=== PATIENT | male | born 1935 | race Caucasian/White ===

== ENCOUNTER 2016-04-30 13:19 | Emergency (ER) | payer MEDICARE, BC ==
[2016-04-30 13:31] VITALS: BP 160/87
[2016-04-30] MEDS ORDERED: Sodium Chloride 0.9% 10 ML Syringe FLUSH PRN (13:31)
--- NOTE | 2016-04-30 13:45 | EDM.PDOC ---
ED HPI NEURO - General Chief Complaint: Neuro Symptoms/Deficits Stated Complaint: SLURRED SPEACH Time Seen by Provider: 04/30/16 13:30 Source of Information: Reports: Patient, Family History Limitations: Reports: Other (slurred speech) - History of Present Illness INITIAL COMMENTS - FREE TEXT/NARRATIVE: Hunter, "Estiven", is an 80yo male brought in by his today with concerns for 3-5 day history of "slurred speech". Family has noted progressive expressive aphasia x 48 hours, "much worse" according to daughter, this morning. Patient recently returned home from 2 months in [place]. Traveled via car from [place], returned 5 days ago. Patient and son noted slurring of speech to start during their travels back home to [place]. Speech has become progressively worse. Patient reports he has noted slurred speech and 2 days ago began having difficulty finding his words. He denies weakness, gait imbalance, headache, palpitations, chest pain, or other associated symptoms. Hx of prior multiple "TIA's" "about 6 years ago", unsure if he is on a blood thinner, does have 325mg ASA on old med list from 2011. Denies that he has had AMI, stents in his heart or DM. He and his are very poor historians. PCP is Dr. Valdes, [facility]. POA is daughter Radha Brown, states he is a Full Code. I talk to her at length on the phone today. Timing/Duration: Reports: Day(s): (3) Location (Neuro Complaint): Reports: face Quality (Neuro Complaint): Reports: altered speech, other (aphasia; unable to find words). Denies: numbness, tingling, weakness, altered gait Improves with: Reports: None Worsens with: Reports: None Associated Symptoms: Denies: headaches, shortness of breath, syncope, weakness, chest pain, cough, sputum, fever/chills, diaphoresis, malaise, loss of appetite , nausea/vomiting, rash - Related Data Allergies/ADRs: Allergies Allergy/AdvReac Type Severity Reaction Status Date / Time No Known Allergies Allergy Verified 04/30/16 13:31 Home Meds: Home Meds Allopurinol [Zyloprim] 200 mg PO DAILY 04/30/16 [History] Aspirin/Calcium Carbonate/Mag [Aspirin Buffered 325 mg Tab] 325 mg PO DAILY [History] Fish Oil/DHA/EPA [Fish Oil 1,200 MG] 1,200 mg PO DAILY 04/30/16 [History] Furosemide 160 mg PO DAILY 04/30/16 [History] Levothyroxine [Synthroid] 50 mcg PO DAILY 04/30/16 [History] Lisinopril 10 mg PO DAILY 04/30/16 [History] Multivit-Min/FA/Lycopen/Lutein [Centrum Silver Men Tablet] 1 tab PO DAILY [History] Niacin 500 mg PO DAILY 04/30/16 [History] Selenium 200 mg PO DAILY 04/30/16 [History] Terazosin [Hytrin] 5 mg PO DAILY 04/30/16 [History] Ubidecarenone [Co Q-10] 1 tab PO DAILY 04/30/16 [History] Vitamin B Complex [B Complex] 1 tab PO DAILY 04/30/16 [History] Vitamin E 400 mg PO DAILY 04/30/16 [History] ED ROS GENERAL - Review of Systems Review Of Systems: See Below Constitutional: Reports: no symptoms HEENT: Reports: No symptoms Respiratory: Reports: No Symptoms Cardiovascular: Denies: Chest pain, Dyspnea on exertion, Edema, Lightheadedness , Palpitations Endocrine: Reports: no symptoms GI/Abdominal: Reports: No symptoms : Reports: no symptoms ED EXAM, NEURO - Physical Exam Exam: See Below Exam Limited By: Other (intermittent expressive aphasia) General Appearance: alert, WD/WN, no apparent distress Eye Exam: bilateral eye: EOMI, PERRL Ears: normal external exam, hearing grossly normal Nose: normal inspection, normal mucosa Throat/Mouth: Normal inspection, Normal lips, Normal teeth, Normal gums, Normal oropharynx, Normal voice, No airway compromise Head Exam: atraumatic, normocephalic Neck: normal inspection, supple Respiratory/Chest: no respiratory distress, lungs clear, normal breath sounds Cardiovascular: normal peripheral pulses, regular rate, rhythm, no edema, no murmur GI/Abdominal: normal bowel sounds, soft, non tender, no organomegaly, other ( ventral hernia present) (Male) Exam: Deferred Rectal (Males) Exam: Deferred Neurological: alert, normal mood/affect, CN II-XII intact, normal reflexes, no motor/sensory deficits, oriented x 3, other (intermittent expressive aphasia. Property Economist strengths and strengths are 5/5 and = bilat). No: abnormal light touch Back Exam: normal inspection Extremities: normal inspection, normal capillary refill, pedal edema (trace to ankles) Psychiatric: normal affect, normal mood, other (calm) Skin Exam: Warm, Dry, Intact, Normal color, No rash EKG INTERPRETATION EKG Date: 04/30/16 Rhythm: other (sinus bradycardia with rate of 51bpm; reviewed with Dr. Castanon) Course - Vital Signs Last Recorded V/S: Last Vital Signs Temp 97.1 F 04/30/16 13:26 Pulse 56 L 04/30/16 13:26 Resp 15 04/30/16 13:26 BP 160/87 H 04/30/16 13:26 Pulse Ox 99 04/30/16 13:26 - Orders/Labs/Meds Orders: Active Orders 24 hr Category Date Time Status EKG Documentation Completion [RC] STAT Care 04/30/16 13:29 Active Chest 1V Frontal [CR] Stat Exams 04/30/16 13:30 Taken Head wo Cont [CT] Stat Exams 04/30/16 13:29 Taken Sodium Chloride 0.9% [Saline Flush] Med 04/30/16 13:31 Active 10 ml FLUSH ASDIRECTED PRN Convert IV to Saline Lock [OM.PC] Stat Oth 04/30/16 13:31 Ordered Medication Orders Sodium Chloride (Saline Flush) 10 ml FLUSH ASDIRECTED PRN PRN Reason: Keep Vein Open Labs: Laboratory Tests 04/30/16 04/30/16 Range/Units 13:27 13:27 WBC 10.07 H (4.23-9.07) K/mm3 RBC 4.36 L (4.63-6.08) M/mm3 Hgb 14.3 (13.7-17.5) gm/L Hct 42.5 (40.1-51.0) % MCV 97.5 H (79.0-92.2) fl MCH 32.8 H (25.7-32.2) pg MCHC 33.6 (32.2-35.5) g/dl RDW Std Deviation 47.7 H (35.1-43.9) fL Plt Count 244 (163-337) K/mm3 MPV 10.2 (9.4-12.3) fl Neut % (Auto) 59.3 (34.0-67.9) % Lymph % (Auto) 25.2 (21.8-53.1) % [place] % (Auto) 12.5 H (5.3-12.2) % Eos % (Auto) 2.5 (0.8-7.0) Baso % (Auto) 0.2 (0.1-1.2) % Neut # (Auto) 5.97 H (1.78-5.38) K/mm3 Lymph # (Auto) 2.54 (1.32-3.57) K/mm3 [place] # (Auto) 1.26 H (0.30-0.82) K/mm3 Eos # (Auto) 0.25 (0.04-0.54) K/mm3 Baso # (Auto) 0.02 (0.01-0.08) K/mm3 Sodium 142 (136-145) mEq/L Potassium 4.0 (3.5-5.1) mEq/L Chloride 105 (98-107) mEq/L Carbon Dioxide 30 (21-32) mEq/L Anion Gap 11.0 (5-15) BUN 23 H (7-18) mg/dL Creatinine 1.5 H (0.7-1.3) mg/dL Est Cr Clr Drug Dosing 41.83 mL/min Estimated GFR (MDRD) 45 (>60) mL/min BUN/Creatinine Ratio 15.3 (14-18) Glucose 82 L (83-115) mg/dL Calcium 8.8 (8.5-10.1) mg/dL Total Bilirubin 0.4 (0.2-1.0) mg/dL AST 18 (15-37) U/L ALT 29 (16-63) U/L Alkaline Phosphatase 56 (46-116) U/L Troponin I < 0.017 (0.00-0.056) ng/mL C-Reactive Protein 0.3 (<1.0) mg/dL Total Protein 7.6 (6.4-8.2) g/dl Albumin 3.9 (3.4-5.0) g/dl Globulin 3.7 gm/dL Albumin/Globulin Ratio 1.1 (1-2) Meds: Medications Generic Name Dose Route Start Last Admin Trade Name Freq PRN Reason Stop Dose Admin Sodium Chloride 10 ml 04/30/16 13:31 Saline Flush FLUSH ASDIRECTED PRN Keep Vein Open - Radiology Interpretation CT Results Date: 04/30/16 (Negative head CT read by [facility]) - Re-Assessments/Exams Free Text/Narrative Re-Assessment/Exam: 04/30/16 16:32 Exprerssive aphasia seems to be worsening during his stay by my review and repeatitive assessments. Bradycardia continued with rates of 48-55bpm during his stay. 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 Gave option for admission to hospital here with MRI/MRA evaluation, echo vs transfer to [place] where Dr. Pablo and his team could potential intervene with neurologic interventional procedure. Patient , daughter/POA elect transfer. Called [facility] in [place]. Spoke to Neurosurgeon, Dr. Pablo, reviewed case with him. He is in agreement to see patient- admit through Hospitalist service for likely Neurosurgical intervention. Spoke with Dr. Rios, Hospitalist who is in agreement to accept patient. Patient will be transported via fixed wing to [facility], for Neurosurgical eval and possible intervention for suspected evolving thrombotic CVA. - My Orders Last 24 Hours: My Active Orders 04/30/16 13:29 EKG Documentation Completion [RC] STAT Head wo Cont [CT] Stat 04/30/16 13:30 Chest 1V Frontal [CR] Stat 04/30/16 13:31 Sodium Chloride 0.9% [Saline Flush] 10 ml FLUSH ASDIRECTED PRN Convert IV to Saline Lock [OM.PC] Stat - Assessment/Plan Last 24 Hours: My Active Orders 04/30/16 13:29 EKG Documentation Completion [RC] STAT Head wo Cont [CT] Stat 04/30/16 13:30 Chest 1V Frontal [CR] Stat 04/30/16 13:31 Sodium Chloride 0.9% [Saline Flush] 10 ml FLUSH ASDIRECTED PRN Convert IV to Saline Lock [OM.PC] Stat
--- NOTE | 2016-05-02 06:53 | CR ---
Chest: Portable view of the chest was obtained. Comparison: No previous chest x-ray. Heart size is normal. Mild tortuosity of the thoracic aorta is seen. Lungs are clear. Bony structures are grossly intact. Impression: 1. Nothing acute is seen on portable chest x-ray. Diagnostic code #1
--- NOTE | 2016-05-02 06:53 | CT ---
Head CT Technique: Multiple axial sections through the brain were obtained. Intravenous contrast was not utilized. Comparison: No previous intracranial imaging. Findings: Ventricles along with basal cisterns and sulci over the convexities are moderately prominent. Greater dilatation of the ventricles in comparison to the sulci over the convexities noted which is felt compatible with greater central atrophy. Mild diminished density noted within the periventricular and subcortical white matter which is compatible with small vessel ischemic demyelination change. Several old lacunar infarcts seen within the basal ganglia. No other abnormal parenchymal densities are seen. No evidence of intracranial hemorrhage. No midline shift or mass effect is seen. Bone window settings were reviewed which show the visualized sinuses to appear clear. No acute calvarial abnormality is seen. Impression: 1. Senescent change as described above. Nothing acute is identified on noncontrast head CT study. Diagnostic code #2 I agree with preliminary report issued by [facility] (preliminary report dictated on 04/30/16, 2:48 PM Central Time)
== END 2016-04-30 17:05 ==
LOC: JD.ED 13:19
DX: R47.81 Slurred speech (principal); R47.01 Aphasia; R00.1 Bradycardia, unspecified; Z79.899 Other long term (current) drug therapy; Z86.73 Personal history of transient ischemic attack (TIA), and cerebral infarction without residual deficits
CPT/HCPCS: 36415; 70450; 71010; 80053; 84484; 85025; 86140; 93005; 99285; J7050

== ENCOUNTER 2017-11-11 18:39 | Emergency (ER) | payer MEDICARE, BC ==
[2017-11-11 18:47] VITALS: BP 179/82
--- NOTE | 2017-11-11 20:02 | EDM.PDOC ---
ED HPI GENERAL MEDICAL PROBLEM - General Chief Complaint: Back Pain or Injury Stated Complaint: [facility] Time Seen by Provider: 11/11/17 20:02 - History of Present Illness INITIAL COMMENTS - FREE TEXT/NARRATIVE: 82-year-old male presents emergency room with left-sided hip and back pain. This is been going on for several weeks, And is getting a little worse he seen his chiropractor for this without much improvement. He has not really tried any significant medical management for this. Patient has a history of a left hip replacement. He denies fevers or chills no burning or frequency with urination no urinary retention or urinary problems. 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: tylenol Left Lower Back Pain Score (Numeric/FACES): 8 - Related Data Allergies Allergy/AdvReac Type Severity Reaction Status Date / Time No Known Allergies Allergy Verified 04/30/16 13:31 Home Meds: Home Meds Allopurinol [Zyloprim] 100 mg PO BEDTIME 11/11/17 [History] Apixaban [Eliquis] 5 mg PO BID 11/11/17 [History] Finasteride [Proscar] 5 mg PO BEDTIME 11/11/17 [History] Furosemide [Lasix] 40 mg PO BID 11/11/17 [History] Levothyroxine 75 mcg PO DAILY 11/11/17 [History] Lisinopril 20 mg PO BID 11/11/17 [History] Lovastatin 20 mg PO DAILY 11/11/17 [History] Oxybutynin 5 mg PO BEDTIME 11/11/17 [History] Propranolol [Inderal] 40 mg PO DAILY 11/11/17 [History] Past Medical History HEENT History: Reports: Impaired Vision Other HEENT History: wears glasses Cardiovascular History: Reports: Hypertension, Other (See Below) Other Cardiovascular History: "swelling of legs" Neurological History: Reports: TIA Endocrine/Metabolic History: Reports: Hypothyroidism Oncologic (Cancer) History: Reports: Bladder - Past Surgical History Musculoskeletal Surgical History: Reports: Hip Replacement Other Musculoskeletal Surgeries/Procedures:: left Social & Family History - Family History Cardiac: Reports: [place] - Tobacco Use Smoking Status *Q: Former Smoker Used Tobacco, but Quit: Yes Month/Year Tobacco Last Used: 50 y r - Caffeine Use Caffeine Use: Reports: Coffee, Tea - Recreational Drug Use Recreational Drug Use: No ED ROS GENERAL - Review of Systems Review Of Systems: See Below Constitutional: Reports: No Symptoms HEENT: Reports: No Symptoms Respiratory: Reports: No Symptoms Cardiovascular: Reports: No Symptoms GI/Abdominal: Reports: No Symptoms : Reports: No Symptoms Musculoskeletal: Reports: Back Pain, Other (Left port hip pain) Neurological: Reports: No Symptoms, Change in Speech ED EXAM, GENERAL - Physical Exam Exam: See Below Exam Limited By: No Limitations General Appearance: Alert, No Apparent Distress Head: Atraumatic, Normocephalic Neck: Normal Inspection, Supple, Non-Tender, Full Range of Motion Respiratory/Chest: No Respiratory Distress, Lungs Clear, Normal Breath Sounds Cardiovascular: Regular Rate, Rhythm, No Edema, No Murmur GI/Abdominal: Normal Bowel Sounds, Soft, Non-Tender, No Organomegaly Extremities: Other (Scans edema motion of his lower extremities is somewhat limited because of discomfort around the left buttocks. However straight leg raises do not appear to make the situation worse) Neurological: Alert, Oriented, Normal Cognition Course - Vital Signs Last Recorded V/S: Last Vital Signs Temp 37.0 C 11/11/17 18:46 Pulse 57 L 11/11/17 18:46 Resp 20 11/11/17 18:46 BP 179/82 H 11/11/17 18:46 Pulse Ox 95 11/11/17 18:46 - Orders/Labs/Meds Orders: Active Orders 24 hr Category Date Time Status Hip Min 2V or 3V w Pelvis Lt [CR] Stat Exams 11/11/17 20:44 Taken Lumbar Spine 2 or 3V [CR] Stat Exams 11/11/17 20:44 Taken Labs: Laboratory Tests 11/11/17 Range/Units 20:50 Urine Color Yellow (Yellow) Urine Appearance Clear (Clear) Urine pH 5.5 (5.0-8.0) Ur Specific [place] 1.015 (1.005-1.030) Urine Protein Negative (Negative) Urine Glucose (UA) Negative (Negative) Urine Ketones Negative (Negative) Urine Occult Blood Negative (Negative) Urine Nitrite Negative (Negative) Urine Bilirubin Negative (Negative) Urine Urobilinogen 0.2 (0.2-1.0) Ur Leukocyte Esterase Negative (Negative) Urine RBC 0-5 (0-5) /hpf Urine WBC 0-5 (0-5) /hpf Ur Epithelial Cells 0-5 (0-5) /hpf Urine Bacteria Not seen (FEW) /hpf Urine Mucus Not seen (FEW) /hpf Meds: Medications Discontinued Medications Generic Name Dose Route Start Last Admin Trade Name Jeancarlos PRN Reason Stop Dose Admin Acetaminophen 650 mg 11/11/17 20:44 11/11/17 20:51 Tylenol PO 11/11/17 20:45 650 mg ONETIME ONE Administration - Re-Assessments/Exams Free Text/Narrative Re-Assessment/Exam: 11/11/17 21:53 While waiting for x-rays patient was given 650 mg of Tylenol he felt much better after this x-ray 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 At this point the patient would like to go home he feels much better. Departure - Departure Time of Disposition: 21:53 Disposition: Home, Self-Care 01 Clinical Impression: Low back pain - Discharge Information Forms: ED Department Discharge Additional Instructions: Return to the emergency room with any questions problems or worsening symptoms. Use Tylenol 650 mg every 6 hours as needed. Follow-up with your physicians as scheduled. - My Orders Last 24 Hours: My Active Orders 11/11/17 20:44 Hip Min 2V or 3V w Pelvis Lt [CR] Stat Lumbar Spine 2 or 3V [CR] Stat - Assessment/Plan Last 24 Hours: My Active Orders 11/11/17 20:44 Hip Min 2V or 3V w Pelvis Lt [CR] Stat Lumbar Spine 2 or 3V [CR] Stat
[2017-11-11] MEDS ORDERED: Acetaminophen Soln 650 MG/20.3 ML UD Cup PO ONE (20:44)
--- NOTE | 2017-11-13 07:46 | CR ---
Lumbar spine: AP, lateral and coned-down lateral views centered to the lumbosacral junction were obtained. Comparison: No previous study. [id number] diffuse disc space narrowing is seen within the spine. Diffuse endplate osteophytes are seen. Vertebral body heights are maintained. Aorta shows slight aneurysmal dilatation distally at around 3.2 cm in AP measurement although this is slightly overestimated due to normal x-ray magnification. No abnormal subluxation is seen. Pedicles as well as visualized transverse and spinous processes are intact. Impression: 1. Diffuse degenerative change as noted above. 2. 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 Diagnostic code #2
--- NOTE | 2017-11-13 08:19 | CR ---
Pelvis and left hip: AP view of the pelvis was obtained as well as AP and frog-leg lateral views of the left hip. Comparison: No previous study. Left hip prosthesis is seen. Components are aligned. Underlying bony structures are intact. Disc space narrowing and endplate spurring is partially visualized within the lower lumbar spine. Mild joint space narrowing is noted within the right hip. Sacroiliac joints show narrowing on the left side. Sclerotic bone island is noted within the upper iliac wing next to the sacroiliac joint on the left side. No discrete fracture or other abnormality is appreciated. Impression: 1. Incidental findings. Nothing acute is appreciated. Diagnostic code #2
== END 2017-11-11 22:04 | disposition home or self-care (01) ==
LOC: JD.ED 18:39
DX: M54.5 Low back pain (principal); I10 Essential (primary) hypertension; Z79.899 Other long term (current) drug therapy; Z87.891 Personal history of nicotine dependence
CPT/HCPCS: 72100; 73502; 81001; 99284; A9270; 99283

== ENCOUNTER 2020-11-17 12:35 | Emergency (ER) | payer MEDICARE, BC ==
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
[2020-11-17] MEDS ORDERED: diphenhydrAMINE 50 MG/ML SDV IVPUSH PRN (14:53)
[2020-11-17] MEDS ORDERED: Famotidine 20 MG/2 ML SDV IVPUSH PRN (14:53)
[2020-11-17] MEDS ORDERED: methylPREDNISolone Sodium Succinate 125 MG/2 ML SDV IVPUSH PRN (14:53)
[2020-11-17] MEDS ORDERED: EPINEPHrine 1 MG/ML SDV IM PRN (14:53)
--- NOTE | 2020-11-17 14:57 | CT ---
Head CT Technique: Multiple axial sections through the brain were obtained. Intravenous contrast was not utilized. Reconstructed coronal and sagittal images were obtained. Comparison: Prior head CT study of 04/30/16. Findings: Ventricles are dilated. These are stable from prior study. Less atrophy is seen within the sulci over the convexities. Old lacunar infarcts are seen within the basal ganglia. Scattered areas of diminished density are noted within the periventricular and subcortical white matter which is compatible with small vessel ischemic demyelination change. Mild atherosclerotic calcification is seen within the vertebral vessels and within the carotid siphon. No midline shift or mass-effect is seen. No intracranial hemorrhage is seen. Bone window settings were reviewed which show no acute calvarial abnormality. Visualized mastoid sinuses are clear. Mild mucosal thickening is seen within the frontal and ethmoid sinuses. Impression: 1. Senescent change as described above. 2. Mild chronic appearing mucosal thickening within the paranasal sinuses. 3. No acute intracranial abnormality is appreciated. Diagnostic code #2 I agree with preliminary report from [facility], finalized on 11/17/20, 2:06 PM CDT, code 1
--- NOTE | 2020-11-17 14:58 | CR ---
Chest: Portable view of the chest was obtained. Comparison: Prior chest x-ray of 04/30/16. Heart size and mediastinum are normal. Slight atelectasis is felt to be present within the left lung base. Lungs otherwise are clear. Scattered degenerative endplate spurring is noted within the spine. Impression: 1. Slight left basilar atelectasis. 2. Nothing acute is otherwise seen on portable chest x-ray. Diagnostic code #2
[2020-11-17] MEDS ORDERED: Sodium Chloride 0.9% 10 ML Syringe FLUSH SCH (15:00)
[2020-11-17] MEDS ORDERED: Bamlanivimab 700 MG, ETESEVIMAB 1,400 MG in Sodium Chloride 0.9% 100 ML IV ONE (15:30)
[2020-11-17 17:17] VITALS: PULSE 72
[2020-11-18] MEDS ORDERED: Dexamethasone 4 MG Tab PO ONE (00:16)
[2020-11-18] MEDS ORDERED: atorvaSTATin 20 MG Tab PO ONE (00:18)
[2020-11-18] MEDS ORDERED: Propranolol 40 MG Tab PO ONE (00:19)
[2020-11-18] MEDS ORDERED: Allopurinol 100 MG Tab PO ONE (00:19)
[2020-11-18] MEDS ORDERED: Apixaban 2.5 MG Tab PO ONE ×2 (00:19→16:41)
[2020-11-18] MEDS ORDERED: Finasteride 5 MG Tab PO ONE (00:20)
[2020-11-18] MEDS ORDERED: Oxybutynin 5 MG Tab.ER PO ONE (16:43)
[2020-11-18] MEDS ORDERED: Lisinopril 10 MG Tab PO ONE (16:43)
[2020-11-18] MEDS ORDERED: Levothyroxine 75 MCG Tab PO ONE (16:44)
[2020-11-18 18:04] VITALS: BP 143/59
== END 2020-11-18 22:15 | disposition home or self-care (01) ==
LOC: JD.ED 12:35
DX: U07.1 COVID-19 (principal); I10 Essential (primary) hypertension; E03.9 Hypothyroidism, unspecified; Z86.73 Personal history of transient ischemic attack (TIA), and cerebral infarction without residual deficits; Z79.01 Long term (current) use of anticoagulants; Z79.899 Other long term (current) drug therapy
CPT/HCPCS: 36415; 70450; 70450-26; 71045; 71045-26; 80053; 81001; 82947; 83605; 83735; 83880; 84484; 85007; 85027; 86140; 93005; 99285-25; A9270-GY; J8540; M0245; Q0245; U0002

== ENCOUNTER 2022-02-20 13:47 | Emergency (ER) | payer MEDICARE, BC ==
[2022-02-20 15:41] VITALS: BP 139/54; PULSE 51
== END 2022-02-20 15:40 | disposition home or self-care (01) ==
LOC: JD.ED 13:47
DX: S00.03XA Contusion of scalp, initial encounter (principal); E03.9 Hypothyroidism, unspecified; I10 Essential (primary) hypertension; Z79.01 Long term (current) use of anticoagulants; Z79.899 Other long term (current) drug therapy; W01.10XA Fall on same level from slipping, tripping and stumbling with subsequent striking against unspecified object, initial encounter
CPT/HCPCS: 70450; 70450-26; 72125; 72125-26; 99284

== ENCOUNTER 2022-05-13 16:12 | Observation (INO) | payer MEDICARE, BC ==
[2022-05-13] MEDS ORDERED: Sodium Chloride 0.9% 10 ML Syringe FLUSH PRN (16:36)
[2022-05-13] MEDS ORDERED: cefTRIAXone 2 GM in Sodium Chloride 0.9% 100 ML IV ONE (19:26)
[2022-05-14] MEDS ORDERED: Furosemide 20 MG Tab ** PATIENT'S OWN MED PO SCH (12:30)
[2022-05-14] MEDS ORDERED: APIXABAN 2.5 MG PO SCH (12:30)
[2022-05-14] MEDS ORDERED: FLUOXETINE 10 MG PO SCH (12:30)
[2022-05-14] MEDS ORDERED: FINASTERIDE 5 MG PO SCH (12:30)
[2022-05-14] MEDS ORDERED: OXYBUTYNIN 10 MG PO SCH (12:30)
[2022-05-14] MEDS ORDERED: Acetaminophen 325 MG Tab PO SCH (13:00)
[2022-05-14 15:47] VITALS: BP 139/68; PULSE 62
[2022-05-14] MEDS ORDERED: atorvaSTATin 20 MG Tab ** PATIENT'S OWN MED PO SCH (21:00)
[2022-05-14] MEDS ORDERED: ALLOPURINOL 100 MG PO SCH (21:00)
[2022-05-15] MEDS ORDERED: LEVOTHYROXINE 75 MCG PO SCH (06:00)
== END 2022-05-14 15:55 | disposition home or self-care (01) ==
LOC: JD.ED 16:12 → JD.MS 19:27
PROVIDERS: ADMIT Internal Medicine; ATTEND Internal Medicine
DX: R00.1 Bradycardia, unspecified (principal); R47.01 Aphasia; R13.10 Dysphagia, unspecified; J69.0 Pneumonitis due to inhalation of food and vomit; E03.9 Hypothyroidism, unspecified; G45.9 Transient cerebral ischemic attack, unspecified; I10 Essential (primary) hypertension; F17.210 Nicotine dependence, cigarettes, uncomplicated; J90 Pleural effusion, not elsewhere classified; J98.11 Atelectasis; K80.20 Calculus of gallbladder without cholecystitis without obstruction; R91.8 Other nonspecific abnormal finding of lung field; N28.1 Cyst of kidney, acquired; I70.0 Atherosclerosis of aorta; R94.31 Abnormal electrocardiogram [ECG] [EKG]; Z79.899 Other long term (current) drug therapy; Z79.890 Hormone replacement therapy; Z96.642 Presence of left artificial hip joint
CPT/HCPCS: 36415; 71046; 71250; 73090; 80048; 80053; 83880; 84484; 85025; 86140; 93005; 96365; 99285; A9270; G0378; J0696; J3490; 93010; 99284

== ENCOUNTER 2022-07-08 17:46 | Inpatient (IN) | payer MEDICARE, BC ==
[2022-07-08 20:02] LABS: HEMATOCRIT 41.7 % (40.1-51.0); HEMOGLOBIN 13.5 gm/dl (13.7-17.5); MEAN CORPUSCULAR HEMOGLOBIN 33.5 pg (25.7-32.2); MEAN CORPUSCULAR HGB CONC 32.4 g/dl (32.2-35.5); MEAN CORPUSCULAR VOLUME 103.5 fl (79.0-92.2); MEAN PLATELET VOLUME 9.8 fl (9.4-12.3); PLATELET COUNT,PLT 367 K/mm3 (163-337); RED BLOOD CELL COUNT 4.03 M/mm3 (4.63-6.08); WHITE BLOOD CELL COUNT,WBC 17.23 K/mm3 (4.23-9.07)
[2022-07-08 20:25] LABS: LACTIC ACID 1.5 mmol/L (0.4-2.0)
[2022-07-08 20:34] LABS: A/G RATIO 0.7 (1-2); ALBUMIN 2.9 g/dl (3.4-5.0); ANION GAP 10.9 (5-15); BILIRUBIN TOTAL 0.4 mg/dL (0.2-1.0); BUN/CREATININE RATIO 22.7 (14-18); CREATININE 1.1 mg/dL (0.7-1.3); EST CRCL DRUG DOSING (CG) 44.23 mL/min; POTASSIUM,K 3.9 mEq/L (3.5-5.1); PROTEIN TOTAL,TP 7.3 g/dl (6.4-8.2)
[2022-07-08] MEDS ORDERED: cefTRIAXone 2 GM in Sodium Chloride 0.9% 100 ML IV ONE (20:50)
[2022-07-08] MEDS ORDERED: Levofloxacin/Dextrose 5%-Water 500 MG in Premix Bag 1 BAG IV SCH (21:00)
[2022-07-08] MEDS ORDERED: Azithromycin 500 MG in Sodium Chloride 0.9% 250 ML IV ONE (21:00)
[2022-07-08] MEDS ORDERED: Acetaminophen 650 MG Supp RECTAL PRN (22:47)
[2022-07-08] MEDS ORDERED: Ondansetron 4 MG/2 ML SDV IV PRN (22:47)
[2022-07-08] MEDS ORDERED: Morphine 2 MG/ML SYRINGE IVPUSH PRN (22:47)
[2022-07-08] MEDS ORDERED: Polyethylene Glycol 3350 Powder 17 GM Packet PO PRN (22:47)
[2022-07-08] MEDS ORDERED: Ondansetron 4 MG Tab.DIS PO PRN (22:47)
[2022-07-08] MEDS ORDERED: Albuterol/Ipratropium 3.0-0.5 MG/3 ML Neb Soln NEB PRN (22:47)
[2022-07-08] MEDS ORDERED: Docusate Sodium 100 MG Cap PO PRN (22:47)
[2022-07-08] MEDS ORDERED: Dextrose 5%-0.9% NaCl 1,000 ML IV SCH (23:00)
[2022-07-08] MEDS ORDERED: Piperacillin/Tazobactam 4.5 GM in Sodium Chloride 0.9% 100 ML IV ONE ×4 (23:30)
[2022-07-09] MEDS ORDERED: Piperacillin/Tazobactam 4.5 GM in Sodium Chloride 0.9% 100 ML IV SCH (05:00)
[2022-07-09 05:21] LABS: BASOPHILS ABSOLUTE AUTO 0.02 K/mm3 (0.01-0.08); BASOPHILS PERCENT AUTO 0.1 % (0.1-1.2); EOSINOPHILS PERCENT AUTO 1.3 (0.8-7.0); IMMATURE GRAN ABSOLUTE AUTO 0.04 K/mm3 (0.00-0.10); IMMATURE GRAN PERCENT AUTO 0.3 % (<=1.0); LYMPHOCYTES PERCENT AUTO 17.6 % (21.8-53.1); MEAN CORPUSCULAR HEMOGLOBIN 33.8 pg (25.7-32.2); MEAN CORPUSCULAR HGB CONC 32.6 g/dl (32.2-35.5); MEAN CORPUSCULAR VOLUME 103.9 fl (79.0-92.2); MEAN PLATELET VOLUME 9.9 fl (9.4-12.3); MONOCYTES ABSOLUTE AUTO 1.78 K/mm3 (0.30-0.82); MONOCYTES PERCENT AUTO 11.2 % (5.3-12.2); NEUTROPHILS ABSOLUTE AUTO 11.09 K/mm3 (1.78-5.38); NEUTROPHILS PERCENT AUTO 69.5 % (34.0-67.9); PLATELET COUNT,PLT 312 K/mm3 (163-337); RED BLOOD CELL COUNT 3.37 M/mm3 (4.63-6.08); WHITE BLOOD CELL COUNT,WBC 15.93 K/mm3 (4.23-9.07)
[2022-07-09 05:26] LABS: HEMOGLOBIN 11.4 gm/dl (13.7-17.5)
[2022-07-09] MEDS: Piperacillin/Tazobactam 4.5 GM in Sodium Chloride 0.9% 100 ML IV SCH ×3 (05:27→22:13)
[2022-07-09 06:04] LABS: ANION GAP 12.5 (5-15); BUN/CREATININE RATIO 19.1 (14-18); CALCIUM 8.4 mg/dL (8.5-10.1); CREATININE 1.1 mg/dL (0.7-1.3); EST CRCL DRUG DOSING (CG) 44.23 mL/min; MAGNESIUM 1.9 mg/dL (1.8-2.4); PHOSPHORUS 4.2 mg/dL (2.6-4.7); POTASSIUM,K 3.5 mEq/L (3.5-5.1); SLIDE REVIEW ABNORMAL SMEAR
[2022-07-09] MEDS: Pantoprazole 40 MG Vial IV SCH ×2 (08:40→20:47)
[2022-07-09] MEDS ORDERED: Enoxaparin 40 MG/0.4 ML Syringe SUBCUT SCH (09:00)
[2022-07-09] MEDS ORDERED: Non-Formulary Medication 1 Each (Levocetirizine Dihydrochloride [Xyzal] 5 MG Tablet) PO PRN (13:53)
[2022-07-09] MEDS ORDERED: Acetaminophen 325 MG Tab PO PRN (14:03)
[2022-07-09] MEDS ORDERED: Furosemide 40 MG/4 ML VIAL IVPUSH ONE (14:07)
[2022-07-09] MEDS: Saccharomyces Boulardii (Probiotic) 250 MG Cap PO SCH ×2 (16:10→20:46)
[2022-07-09 17:19] LABS: APPEARANCE,URINE CLEAR (Clear); BILIRUBIN,URINE NEGATIVE (Negative); COLOR,URINE YELLOW (Yellow); GLUCOSE,URINE NEGATIVE (Negative); KETONES,URINE NEGATIVE (Negative); LEUKOCYTE ESTERASE,URINE NEGATIVE (Negative); NITRITE,URINE NEGATIVE (Negative); OCCULT BLOOD,URINE NEGATIVE (Negative); PH,URINE 6.5 (5.0-8.0); PROTEIN,URINE NEGATIVE (Negative); UROBILINOGEN,URINE 0.2 (0.2-1.0)
[2022-07-09 17:26] LABS: RBC,URINE 0-5 /hpf (0-5); SQUAMOUS EPITHELIAL CELLS,UR NOT SEEN /hpf (0-5); WBC,URINE NOT SEEN /hpf (0-5)
[2022-07-09 17:27] LABS: BACTERIA,URINE RARE /hpf (FEW); MUCUS,URINE RARE /hpf (FEW)
[2022-07-09] MEDS: Apixaban 2.5 MG Tab PO SCH (20:46)
[2022-07-09] MEDS ORDERED: Allopurinol 100 MG Tab PO SCH (21:00)
[2022-07-09] MEDS ORDERED: atorvaSTATin 20 MG Tab PO SCH (21:00)
[2022-07-09] MEDS ORDERED: Azithromycin 500 MG in Sodium Chloride 0.9% 250 ML IV SCH (21:00)
[2022-07-10] MEDS: Piperacillin/Tazobactam 4.5 GM in Sodium Chloride 0.9% 100 ML IV SCH (05:02)
[2022-07-10 05:28] LABS: BASOPHILS ABSOLUTE AUTO 0.03 K/mm3 (0.01-0.08); BASOPHILS PERCENT AUTO 0.3 % (0.1-1.2); EOSINOPHILS ABSOLUTE AUTO 0.72 K/mm3 (0.04-0.54); EOSINOPHILS PERCENT AUTO 6.5 (0.8-7.0); HEMATOCRIT 36.7 % (40.1-51.0); HEMOGLOBIN 11.8 gm/dl (13.7-17.5); IMMATURE GRAN ABSOLUTE AUTO 0.03 K/mm3 (0.00-0.10); IMMATURE GRAN PERCENT AUTO 0.3 % (<=1.0); LYMPHOCYTES ABSOLUTE AUTO 2.45 K/mm3 (1.32-3.57); LYMPHOCYTES PERCENT AUTO 22.2 % (21.8-53.1); MEAN CORPUSCULAR HEMOGLOBIN 33.3 pg (25.7-32.2); MEAN CORPUSCULAR HGB CONC 32.2 g/dl (32.2-35.5); MEAN CORPUSCULAR VOLUME 103.7 fl (79.0-92.2); MEAN PLATELET VOLUME 9.9 fl (9.4-12.3); MONOCYTES ABSOLUTE AUTO 1.38 K/mm3 (0.30-0.82); MONOCYTES PERCENT AUTO 12.5 % (5.3-12.2); NEUTROPHILS ABSOLUTE AUTO 6.41 K/mm3 (1.78-5.38); NEUTROPHILS PERCENT AUTO 58.2 % (34.0-67.9); PLATELET COUNT,PLT 316 K/mm3 (163-337); RED BLOOD CELL COUNT 3.54 M/mm3 (4.63-6.08); WHITE BLOOD CELL COUNT,WBC 11.02 K/mm3 (4.23-9.07)
[2022-07-10 05:41] LABS: ANION GAP 11.7 (5-15); CALCIUM 8.6 mg/dL (8.5-10.1); CREATININE 1.2 mg/dL (0.7-1.3); EST CRCL DRUG DOSING (CG) 40.55 mL/min; POTASSIUM,K 3.7 mEq/L (3.5-5.1)
[2022-07-10] MEDS ORDERED: Levothyroxine 75 MCG Tab PO SCH (06:00)
[2022-07-10] MEDS ORDERED: Metoprolol Succinate 25 MG Tab.ER PO SCH (09:00)
[2022-07-10] MEDS ORDERED: Furosemide 20 MG Tab PO SCH (09:00)
[2022-07-10] MEDS ORDERED: Oxybutynin 5 MG Tab.ER PO SCH (09:00)
[2022-07-10] MEDS ORDERED: FLUoxetine 10 MG Cap PO SCH (09:00)
[2022-07-10] MEDS ORDERED: Finasteride 5 MG Tab PO SCH (09:00)
[2022-07-10] MEDS ORDERED: [UNRECOGNIZED DRUG - OTHER] PO SCH (09:00)
[2022-07-10] MEDS: Apixaban 2.5 MG Tab PO SCH (09:18)
[2022-07-10] MEDS: Pantoprazole 40 MG Vial IV SCH (09:18)
[2022-07-10] MEDS: Saccharomyces Boulardii (Probiotic) 250 MG Cap PO SCH (09:19)
[2022-07-10 13:55] VITALS: BP 148/79; PULSE 69
== END 2022-07-10 15:01 | disposition home or self-care (01) | DRG 193 ==
LOC: JD.ED 17:46 → JD.ICU 21:19
PROVIDERS: ADMIT Emergency Medicine; ATTEND Hospitalist
DX: J18.9 Pneumonia, unspecified organism (principal); R09.02 Hypoxemia; F03.90 Unspecified dementia, unspecified severity, without behavioral disturbance, psychotic disturbance, mood disturbance, and anxiety; J96.01 Acute respiratory failure with hypoxia; T17.828A Food in other parts of respiratory tract causing other injury, initial encounter; E03.9 Hypothyroidism, unspecified; E78.5 Hyperlipidemia, unspecified; I10 Essential (primary) hypertension; N40.0 Benign prostatic hyperplasia without lower urinary tract symptoms; M10.9 Gout, unspecified; N32.81 Overactive bladder; Z96.649 Presence of unspecified artificial hip joint; H91.90 Unspecified hearing loss, unspecified ear; R13.10 Dysphagia, unspecified; H54.7 Unspecified visual loss; D64.9 Anemia, unspecified; Z98.890 Other specified postprocedural states; Z79.01 Long term (current) use of anticoagulants; Z79.890 Hormone replacement therapy; Z86.73 Personal history of transient ischemic attack (TIA), and cerebral infarction without residual deficits; Z79.899 Other long term (current) drug therapy
CPT/HCPCS: 36415; 71045; 71045-26; 80048; 80053; 81001; 83605; 83735; 83880; 84100; 84484; 85025; 85027; 87040; 93005; 93010; 94762; 96365; 96375; 99223; 99232; 99239; 99285; 99285-25; A9270-GY; C9113; J0456; J0696; J1650; J1940; J2543; J3490; J7042; J7050